=== PATIENT | male | born 1980 | race Caucasian/White ===

== ENCOUNTER 2025-04-13 12:53 | Emergency (ER) | payer BC ==
[~2025-04-13] VITALS: Ht 172.7 cm; Wt 91.3 kg
[2025-04-13 13:34] LABS: BASO # 0.0 10^3/uL (0.0-0.2); BASO % 0.3 % (0.0-1.0); EOS # 0.1 10^3/uL (0.0-0.5); EOS % 0.8 % (0.0-3.0); LYMPH # 1.9 10^3/uL (1.5-5.0); LYMPH % 15.6 % (24.0-44.0); MONO # 0.7 10^3/uL (0.0-0.8); MONO % 6.2 % (2.0-8.0); NEUTROPHILS # 9.2 10^3/uL (1.5-8.5); NEUTROPHILS % 76.8 % (36.0-66.0); PLATELET COUNT, AUTOMATED 325 10^3/uL (150-450)
[2025-04-13 14:00] LABS: CALCIUM LEVEL 9.8 MG/DL (8.5-10.1); CARBON DIOXIDE LEVEL 28 MMOL/L (20-31); CHLORIDE LEVEL 103 MMOL/L (98-107); CK-MB VALUE MASS 85.4 NG/ML (<3.6); CPK CREATINE PHOSPHOKINASE 691 U/L (46-171); CREATININE FOR GFR 0.86 MG/DL (0.70-1.30); GLOMERULAR FILTRATION RATE > 90.0 (>60); MB/CK RELATIVE INDEX 12.35 (< OR =4); POTASSIUM SERUM 4.4 MMOL/L (3.5-5.1); SODIUM LEVEL 140 MMOL/L (136-145)
[2025-04-13] MEDS: NS 500 ML IV ONE (14:48)
[2025-04-13] MEDS: ASPIRIN 81 MG CHEWABLE TABLET PO ONE (14:48)
[2025-04-13 15:01] LABS: INR 0.9
[2025-04-13] MEDS: FAMOTIDINE 20 MG TAB PO ONE (15:06)
[2025-04-13] MEDS: HEPARIN SOD 5000 UNITS/ML 1 ML VIAL/SYRINGE IV ONE (15:09)
[2025-04-13] MEDS: HEPARIN DRIP 25,000 UNITS in IV 1 EA IV SCH (15:10)
[2025-04-13] MEDS: NS (Normal Saline) 0.9% 1,000 ML IV ONE (15:11)
[2025-04-13 15:15] LABS: CK-MB VALUE MASS 84.5 NG/ML (<3.6)
[2025-04-13 15:17] LABS: CPK CREATINE PHOSPHOKINASE 657.0 U/L (46-171); MB/CK RELATIVE INDEX 12.86 (< OR =4)
[2025-04-13] MEDS: NITROGLYCERIN/D5W 100MCG/ML 25 MG in IV 1 EA IV SCH (15:28)
[2025-04-13 15:30] VITALS: TEMP 96.7
[2025-04-13 15:43] VITALS: BP 129/81; O2SAT 98
== END 2025-04-13 15:45 | disposition short-term general hospital (02) ==
LOC: M ED 12:53
DX: I21.3 ST elevation (STEMI) myocardial infarction of unspecified site (principal); F17.200 Nicotine dependence, unspecified, uncomplicated; Z88.0 Allergy status to penicillin; Z88.8 Allergy status to other drugs, medicaments and biological substances; Z91.030 Bee allergy status
CPT/HCPCS: 36415; 71045; 80048; 82550; 82553; 84484; 85025; 85610; 85730; 93005; 93041; 94760; 96365; 96368; 96375; 99285; J2305; J3010